=== PATIENT | male | born 1960 | race Caucasian/White ===

== ENCOUNTER → 2024-07-17 08:53 | Outpatient (REF) | payer OTHER, SELFPAY | LOC: RAD 08:53 | PROVIDERS: ATTENDING PHYSICIAN Surgery Vascular Surgery | DX: I63.239 Cerebral infarction due to unspecified occlusion or stenosis of unspecified carotid artery (principal); I77.1 Stricture of artery; I72.9 Aneurysm of unspecified site | CPT/HCPCS: 93880; 93922; 93923; 93925; 93930 ==

== ENCOUNTER 2024-08-14 07:37 | Outpatient (RCR) | payer OTHER, SELFPAY ==
[2024-08-14 08:00] VITALS: BP 145/78
[2024-08-14] MEDS: SODIUM BICARBONATE 1150 MEQ IV (08:14)
== END 2024-08-15 11:35 | disposition home or self-care (01) ==
LOC: OID 07:37
PROVIDERS: ATTENDING PHYSICIAN Surgery Vascular Surgery
DX: I63.239 Cerebral infarction due to unspecified occlusion or stenosis of unspecified carotid artery (principal); I77.1 Stricture of artery; I73.9 Peripheral vascular disease, unspecified
CPT/HCPCS: 96360; 96361

== ENCOUNTER → 2024-08-14 08:20 | Outpatient (REF) | payer OTHER, SELFPAY | LOC: RAD 08:20 | PROVIDERS: ATTENDING PHYSICIAN Surgery Vascular Surgery | DX: I63.239 Cerebral infarction due to unspecified occlusion or stenosis of unspecified carotid artery (principal) | CPT/HCPCS: 70496; 70498; Q9967 ==

== ENCOUNTER → 2025-03-16 07:29 | Outpatient (REF) | payer OTHER, SELFPAY | LOC: RAD 07:29 | PROVIDERS: ATTENDING PHYSICIAN Surgery Vascular Surgery; FAMILY PHYSICIAN Family Medicine | DX: I63.239 Cerebral infarction due to unspecified occlusion or stenosis of unspecified carotid artery (principal); Z87.891 Personal history of nicotine dependence; F17.200 Nicotine dependence, unspecified, uncomplicated; I73.9 Peripheral vascular disease, unspecified | CPT/HCPCS: 71271; 93880; 93922; 93925 ==

== ENCOUNTER → 2025-04-29 08:34 | Outpatient (REF) | payer OTHER, SELFPAY | LOC: PAVMRI 08:34 | PROVIDERS: ATTENDING PHYSICIAN Registered Nurse | DX: I63.239 Cerebral infarction due to unspecified occlusion or stenosis of unspecified carotid artery (principal) | CPT/HCPCS: 70544; 70549; A9585 ==